=== PATIENT | female | born 1975 | race African-American/Black ===

== ENCOUNTER 2019-11-29 15:21 | Inpatient (IN) ==
[2019-11-29] MEDS ORDERED: LACTATED RINGERS 1,000 ML IV ONE (16:44)
[2019-11-29] MEDS ORDERED: cefTRIAXone 1,000 MG in SODIUM CHLORIDE 0.9% 100 ML IV STA (16:45)
[2019-11-29] MEDS ORDERED: DEXAMETHASONE 4 MG/1 ML VIAL IV STA (16:45)
[2019-11-29 17:02] LABS: Basophils % 0.3 % (0.0-0.8); Eosinophils % 0.2 % (0.00-10.9); Hematocrit 38.5 VOL% (35.7-47.0); Hemoglobin 12.1 GM/DL (12.0-16.0); Immature Granulocytes % 0.5 %; Immature Granulocytes Absolute 0.03 #; Lymphocytes # 1.1 10*3/uL (1.4-4.0); Lymphocytes % 19.3 % (21.3-54.2); Mean Corpuscular HGB Conc 31.4 GM/DL (32-36); Mean Corpuscular Volume 78.1 FL (87-102); Mean Platelet Volume 10.7 FL (9.6-12.0); Monocytes % 9.7 % (1.7-12.7); Platelet Count 348 T/CUMM (130-400); Red Blood Count 4.93 MC/CUMM (3.8-5.5); Red Cell Distribution Width 15.3 % (9.3-17.3); White Blood Count 5.8 T/CUMM (4-12)
[2019-11-29 17:10] LABS: ABG Base Excess -4.2 MMOL/L (-2.5-2.5); ABG HCO3 20.9 MMOL/L (20-26); ABG Oxygen Saturation 95.2 % (95-100); ABG PCO2 33.1 MM HG (35-48); ABG PH 7.389 (7.35-7.45); ABG PO2 80.3 MM HG (80-95); ABG TCO2 17.9 MMOL/L (23-27)
[2019-11-29 17:53] LABS: PT Patient Result 10.9 SECS (9.8-11.9); Partial Thromboplastin Time 28.8 SECS (23.9-33.8)
[2019-11-29 18:17] LABS: Bacteria,Urine Many /HPF (Few); Bilirubin,Urine Negative (Negative); Blood, Urine Small mg/dL (Negative); Glucose,Urine (UA) Negative (Negative); Hyaline Casts,Urine 9 /LPF (0-3); Ketones,Urine 5 mg/dL (Negative); Mucus,Urine Occasional /LPF (Occasional); Nitrite,Urine Negative (Negative); Protein,Urine 100 MG/DL; RBC,Urine 6 /HPF (0-4); Squamous Epithelial Cell,Urine Occasional /HPF (0-10); Urine Appearance CLOUDY (Clear); Urine Color Amber (Yellow); Urine Specific Gravity 1.024 (1.001-1.035); Urine Urobilinogen < 2.0 EU/DL (0.2-1.0); WBC,Urine 9 /HPF (0-6)
[2019-11-29 18:39] LABS: Albumin 2.6 G/DL (3.4-5.0); Bilirubin,Total 0.6 MG/DL (0.2-1.0); Calcium 9.2 MG/DL (8.5-10.1); Osmolality,Calculated 266.2 MOS/KG (273-304); Total Protein 8.3 G/DL (6.4-8.3)
[2019-11-29] MEDS ORDERED: DEXTROSE 50% 25 GM/50 ML VIAL IV PRN (18:49)
[2019-11-29] MEDS ORDERED: GLUCAGON 1 MG VIAL IM PRN (18:49)
[2019-11-29] MEDS ORDERED: ACETAMINOPHEN 325 MG TABLET PO PRN (18:49)
[2019-11-29] MEDS ORDERED: ONDANSETRON 4 MG/2 ML VIAL IV PRN (18:49)
[2019-11-29] MEDS: INSULIN REGULAR 100 UNIT/ML SUBCUT SCH (22:10)
[2019-11-29] MEDS: AZITHROMYCIN INJ 500 MG in SODIUM CHLORIDE 0.9% 250 ML IV SCH (22:10)
[2019-11-29] MEDS: ZINC SULFATE 220 MG CAPSULE PO SCH (22:11)
[2019-11-29] MEDS: ENOXAPARIN 40 MG/0.4 ML SYRINGE SUBCUT SCH (22:11)
[2019-11-30 08:01] LABS: Basophils % 0.4 % (0.0-0.8); Hemoglobin 10.8 GM/DL (12.0-16.0); Immature Granulocytes % 0.7 %; Immature Granulocytes Absolute 0.02 #; Lymphocytes % 35.2 % (21.3-54.2); Mean Corpuscular HGB Conc 31.8 GM/DL (32-36); Mean Corpuscular Volume 77.4 FL (87-102); Mean Platelet Volume 9.5 FL (9.6-12.0); Monocytes % 14.6 % (1.7-12.7); Neutrophils % 49.1 % (38.7-73.9); Platelet Count 291 T/CUMM (130-400); Red Blood Count 4.39 MC/CUMM (3.8-5.5); Red Cell Distribution Width 14.9 % (9.3-17.3); White Blood Count 2.8 T/CUMM (4-12)
[2019-11-30 08:24] LABS: Atypical Lymphocytes Few; Band Neutrophils 2 % (0-10); Lymphocytes 30 % (20-55); Segmented Neutrophils 56 % (50-85); Total Cells Counted 100
[2019-11-30 08:25] LABS: Hypochromasia 1+; Microcytosis 1+; Platelet Estimate Normal
[2019-11-30 08:36] LABS: Albumin 2.3 G/DL (3.4-5.0); Bilirubin,Total 1.2 MG/DL (0.2-1.0); Calcium 9.1 MG/DL (8.5-10.1); Osmolality,Calculated 275.7 MOS/KG (273-304); Total Protein 7.2 G/DL (6.4-8.3)
[2019-11-30] MEDS: allopurinoL 100 MG TABLET PO SCH (08:48)
[2019-11-30] MEDS: ASCORBIC ACID 500 MG TABLET PO SCH (08:48)
[2019-11-30] MEDS: LORATADINE 10 MG TABLET PO SCH (08:48)
[2019-11-30] MEDS: SPIRONOLACTONE 25 MG TABLET PO SCH (08:48)
[2019-11-30] MEDS: MAGNESIUM OXIDE 400 MG TABLET PO SCH (08:49)
[2019-11-30] MEDS: PANTOPRAZOLE 40 MG TABLET PO SCH (08:49)
[2019-11-30] MEDS: INSULIN REGULAR 100 UNIT/ML SUBCUT SCH ×4 (08:49→21:45)
[2019-11-30] MEDS: CHOLECALCIFEROL 1,000 UNIT TABLET PO SCH (08:49)
[2019-11-30] MEDS: lisinopriL 20 MG TABLET PO SCH (08:49)
[2019-11-30] MEDS: DEXAMETHASONE 10 MG/1 ML VIAL IV SCH (08:50)
[2019-11-30] MEDS: FUROSEMIDE 40 MG TABLET PO SCH (08:52)
[2019-11-30] MEDS ORDERED: guaiFENesin 200 MG/10 ML UDCUP PO PRN (13:18)
[2019-11-30] MEDS: ALBUTEROL INHALER 18 GM INH SCH ×2 (13:58→18:17)
[2019-11-30] MEDS: cefTRIAXone 1,000 MG in SYRINGE 1 EACH IV SCH (17:50)
[2019-11-30] MEDS: ATORVASTATIN 20 MG TABLET PO SCH (21:45)
[2019-11-30] MEDS: AZITHROMYCIN INJ 500 MG in SODIUM CHLORIDE 0.9% 250 ML IV SCH (21:45)
[2019-11-30] MEDS: EZETIMIBE 10 MG TABLET PO SCH (21:45)
[2019-11-30] MEDS: ENOXAPARIN 40 MG/0.4 ML SYRINGE SUBCUT SCH (21:45)
[2019-12-01] MEDS: ALBUTEROL INHALER 18 GM INH SCH ×4 (00:12→19:16)
[2019-12-01 04:08] LABS: Hematocrit 34.6 VOL% (35.7-47.0); Hemoglobin 11.1 GM/DL (12.0-16.0); Immature Granulocytes % 0.5 %; Immature Granulocytes Absolute 0.02 #; Lymphocytes # 1.1 10*3/uL (1.4-4.0); Lymphocytes % 24.5 % (21.3-54.2); Mean Corpuscular HGB Conc 32.1 GM/DL (32-36); Mean Corpuscular Volume 77.9 FL (87-102); Mean Platelet Volume 10.2 FL (9.6-12.0); Monocytes % 15.4 % (1.7-12.7); Neutrophils % 59.6 % (38.7-73.9); Platelet Count 342 T/CUMM (130-400); Red Blood Count 4.44 MC/CUMM (3.8-5.5); Red Cell Distribution Width 14.9 % (9.3-17.3); White Blood Count 4.4 T/CUMM (4-12)
[2019-12-01 04:21] LABS: Calcium 9.1 MG/DL (8.5-10.1); Osmolality,Calculated 279.5 MOS/KG (273-304)
[2019-12-01 07:03] LABS: Band Neutrophils 2 % (0-10); Eosinophils 1 % (0-10); Lymphocytes 27 % (20-55); Platelet Estimate Normal; Segmented Neutrophils 50 % (50-85); Total Cells Counted 100
[2019-12-01 07:04] LABS: Anisocytosis 2+; Macrocytosis Slight; Microcytosis 2+
[2019-12-01] MEDS: ZINC SULFATE 220 MG CAPSULE PO SCH (09:03)
[2019-12-01] MEDS: INSULIN REGULAR 100 UNIT/ML SUBCUT SCH ×4 (09:03→21:39)
[2019-12-01] MEDS: ASCORBIC ACID 500 MG TABLET PO SCH (09:04)
[2019-12-01] MEDS: MAGNESIUM OXIDE 400 MG TABLET PO SCH (09:04)
[2019-12-01] MEDS: AZITHROMYCIN 250 MG TABLET PO SCH (09:04)
[2019-12-01] MEDS: PANTOPRAZOLE 40 MG TABLET PO SCH (09:05)
[2019-12-01] MEDS: lisinopriL 20 MG TABLET PO SCH (09:05)
[2019-12-01] MEDS: SPIRONOLACTONE 25 MG TABLET PO SCH (09:05)
[2019-12-01] MEDS: FUROSEMIDE 40 MG TABLET PO SCH (09:05)
[2019-12-01] MEDS: allopurinoL 100 MG TABLET PO SCH (09:05)
[2019-12-01] MEDS: CHOLECALCIFEROL 1,000 UNIT TABLET PO SCH (09:06)
[2019-12-01] MEDS: DEXAMETHASONE 10 MG/1 ML VIAL IV SCH (09:06)
[2019-12-01] MEDS: LORATADINE 10 MG TABLET PO SCH (09:06)
[2019-12-01] MEDS ORDERED: FLUCONAZOLE 100 MG TABLET PO ONE (16:00)
[2019-12-01] MEDS: cefTRIAXone 1,000 MG in SYRINGE 1 EACH IV SCH (17:52)
[2019-12-01] MEDS: ATORVASTATIN 20 MG TABLET PO SCH (21:42)
[2019-12-01] MEDS: ENOXAPARIN 40 MG/0.4 ML SYRINGE SUBCUT SCH (21:42)
[2019-12-01] MEDS: EZETIMIBE 10 MG TABLET PO SCH (21:43)
[2019-12-02] MEDS: ALBUTEROL INHALER 18 GM INH SCH ×2 (00:41→06:12)
[2019-12-02 04:23] LABS: Basophils % 0.2 % (0.0-0.8); Eosinophils % 0.2 % (0.00-10.9); Hematocrit 35.6 VOL% (35.7-47.0); Hemoglobin 11.1 GM/DL (12.0-16.0); Immature Granulocytes % 0.6 %; Immature Granulocytes Absolute 0.03 #; Lymphocytes # 1.2 10*3/uL (1.4-4.0); Lymphocytes % 23.3 % (21.3-54.2); Mean Corpuscular HGB Conc 31.2 GM/DL (32-36); Mean Corpuscular Volume 78.4 FL (87-102); Mean Platelet Volume 9.8 FL (9.6-12.0); Monocytes % 12.8 % (1.7-12.7); Neutrophils % 62.9 % (38.7-73.9); Platelet Count 364 T/CUMM (130-400); Red Blood Count 4.54 MC/CUMM (3.8-5.5); Red Cell Distribution Width 14.9 % (9.3-17.3); White Blood Count 5.2 T/CUMM (4-12)
[2019-12-02 04:46] LABS: Blood Urea Nitrogen 12 MG/DL (7-18); Calcium 9.2 MG/DL (8.5-10.1); Estimated Glom Filtration Rate 135 ML/MIN; Glucose 151 MG/DL (74-106); Osmolality,Calculated 281.4 MOS/KG (273-304)
[2019-12-02 07:02] LABS: Lymphocytes 23 % (20-55); Platelet Estimate Normal; Segmented Neutrophils 61 % (50-85); Total Cells Counted 100
[2019-12-02] MEDS: CHOLECALCIFEROL 1,000 UNIT TABLET PO SCH (08:41)
[2019-12-02] MEDS: MAGNESIUM OXIDE 400 MG TABLET PO SCH (08:41)
[2019-12-02] MEDS: LORATADINE 10 MG TABLET PO SCH (08:41)
[2019-12-02] MEDS: ASCORBIC ACID 500 MG TABLET PO SCH (08:41)
[2019-12-02] MEDS: AZITHROMYCIN 250 MG TABLET PO SCH (08:41)
[2019-12-02] MEDS: FUROSEMIDE 40 MG TABLET PO SCH (08:41)
[2019-12-02] MEDS: allopurinoL 100 MG TABLET PO SCH (08:42)
[2019-12-02] MEDS: lisinopriL 20 MG TABLET PO SCH (08:42)
[2019-12-02] MEDS: SPIRONOLACTONE 25 MG TABLET PO SCH (08:42)
[2019-12-02] MEDS: INSULIN REGULAR 100 UNIT/ML SUBCUT SCH (08:42)
[2019-12-02] MEDS: DEXAMETHASONE 10 MG/1 ML VIAL IV SCH (08:42)
[2019-12-02] MEDS: PANTOPRAZOLE 40 MG TABLET PO SCH (08:43)
[2019-12-02 12:38] VITALS: BP 120/85
== END 2019-12-02 12:43 | disposition home health service (06) | DRG 177 ==
LOC: N.ED 15:21 → N.EDINP 18:49 → N.2E 21:23
PROVIDERS: ADMIT Internal Medicine; ATTEND Internal Medicine